=== PATIENT | male | born 1975 | race Caucasian/White ===

== ENCOUNTER 2017-09-18 11:41 | Inpatient (IN) | payer OTHER ==
[~2017-09-18] VITALS: Ht 167.6 cm; Wt 69.5 kg
[2017-09-18] VITALS (14 sets, daily range): BP systolic 116–190; BP diastolic 58–109
[~2017-09-18 11:41] MED LIST: APRESOLINE100 MG PO; ASPIR 8181 M1 PO; ATORVASTATIN CA40 MG PO; BACTRIM,SEPT1 TABLE1 PO; INSULIN PUMP MC; LABETALOL HCL300 MG PO; METOLAZONE5 MG PO; MYCOPHENOLATE250 MG PO; NABI650T PO; PANTOPRAZOLE SO40 MG PO; PLAVIX75 MG PO; PREDNISONE10 MG PO; SYNTHROID150 MCG PO; TACROLIMUS ANHYD1 MG PO; TORSEMIDE100 MG PO; VALCYTE450 MG PO; VITAMIN D32000 UNI1 PO
[2017-09-18 12:39] LABS: HEMATOCRIT 28.3 % (38.0-50.0); MCH 30.3 PG (29.0-34.0); MCHC 31.1 G/DL (30.0-36.0); MCV 97.6 FL (86-99); MEAN PLAT.VOLUME 9.4 uM^3 (9.0-12.4); PLATELET COUNT 265 K/uL (156-360); RBC DIS.WIDTH-CV 14.6 % (11.8-14.6); RBC DIS.WIDTH-SD 52.4 % (39-53); WHITE BLOOD COUNT 5.2 K/uL (4.1-10.2)
[2017-09-18 13:16] LABS: ANION GAP 14 MEQ/L (2-14); CHLORIDE 86 MEQ/L (99-109); GFR ESTIMATE (CALCULATED) 17 mL/min/; GLUCOSE 935 mg/dL (70-99); POTASSIUM 4.2 MEQ/L (3.7-5.4); SAMPLE HEMOLYSIS CHECK 0; SAMPLE ICTERIC CHECK 0; SAMPLE LIPEMIA CHECK 0; SODIUM 126 MEQ/L (136-147); UREA NITROGEN (BUN) 68 mg/dL (9-23)
[2017-09-18 16:13] LABS: METH RESISTANT S AUREUS PCR NEGATIVE (NEGATIVE); PROBE CHECK PASS; SPECIMEN PROCESSING CONTROL PASS
[2017-09-18 16:29] LABS: GLUCOSE 986 mg/dL (70-99)
[2017-09-18 18:18] LABS: GLUCOSE 880 mg/dL (70-99)
[2017-09-18 20:03] LABS: ANION GAP 14 MEQ/L (2-14); CHLORIDE 90 MEQ/L (99-109); POTASSIUM 4.3 MEQ/L (3.7-5.4); SAMPLE HEMOLYSIS CHECK 0; SAMPLE ICTERIC CHECK 0; SAMPLE LIPEMIA CHECK 0; SODIUM 128 MEQ/L (136-147)
[2017-09-18 20:11] LABS: GFR ESTIMATE (CALCULATED) 17 mL/min/; UREA NITROGEN (BUN) 69 mg/dL (9-23)
[2017-09-18 20:13] LABS: GLUCOSE 682 mg/dL (70-99)
[2017-09-19] VITALS (25 sets, daily range): BP systolic 123–182; BP diastolic 62–102
[2017-09-19 00:48] LABS: CHLORIDE 94 mEq/L (99-109); POTASSIUM 3.9 mEq/L (3.7-5.4); SODIUM 130 mEq/L (136-147)
[2017-09-19 00:52] LABS: ANION GAP 13 MEQ/L (2-14)
[2017-09-19 00:54] LABS: GFR ESTIMATE (CALCULATED) 14 mL/min/; GLUCOSE 428 mg/dL (70-99)
[2017-09-19 00:55] LABS: UREA NITROGEN (BUN) 72 mg/dL (9-23)
[2017-09-19 01:18] LABS: POINT-OF-CARE METER ID UU13113803; POINT-OF-CARE USER ID 609231305
[2017-09-19 02:36] LABS: POINT-OF-CARE METER ID UU13113803
[2017-09-19 03:31] LABS: POINT-OF-CARE METER ID UU14314083
[2017-09-19 04:32] LABS: POINT-OF-CARE METER ID UU14162636
[2017-09-19 05:24] LABS: ANION GAP 13 MEQ/L (2-14); CHLORIDE 95 MEQ/L (99-109); POTASSIUM 3.7 MEQ/L (3.7-5.4); SAMPLE HEMOLYSIS CHECK 0; SAMPLE ICTERIC CHECK 0; SAMPLE LIPEMIA CHECK 0; SODIUM 135 MEQ/L (136-147)
[2017-09-19 05:30] LABS: GFR ESTIMATE (CALCULATED) 15 mL/min/; UREA NITROGEN (BUN) 72 mg/dL (9-23)
[2017-09-19 05:30] LABS: POINT-OF-CARE METER ID UU13113803
[2017-09-19 05:31] LABS: GLUCOSE 154 mg/dL (70-99)
[2017-09-19 06:34] LABS: POINT-OF-CARE METER ID UU13113803
[2017-09-19 07:25] LABS: Estimated Average Glucose 200 mg/dL (70-123); HEMOGLOBIN A1c (GLYCOHEMOGLOB) 8.6 % HGB (Below 5.7)
[2017-09-19 08:48] LABS: ANION GAP 14 MEQ/L (2-14); CHLORIDE 93 MEQ/L (99-109); GFR ESTIMATE (CALCULATED) 14 mL/min/; GLUCOSE 214 mg/dL (70-99); POTASSIUM 3.8 MEQ/L (3.7-5.4); SAMPLE HEMOLYSIS CHECK 0; SAMPLE ICTERIC CHECK 0; SAMPLE LIPEMIA CHECK 0; SODIUM 133 MEQ/L (136-147); UREA NITROGEN (BUN) 77 mg/dL (9-23)
[2017-09-19 10:45] LABS: POINT-OF-CARE METER ID UU14314083
[2017-09-19 11:23] LABS: POINT-OF-CARE METER ID UU14314083
[2017-09-19 12:49] LABS: POINT-OF-CARE METER ID UU14314083
[2017-09-19 14:10] LABS: POINT-OF-CARE METER ID UU14314083
[2017-09-19 14:20] LABS: POINT-OF-CARE METER ID UU13113731
[2017-09-19 14:21] LABS: POINT-OF-CARE METER ID UU13113731
[2017-09-19 14:21] LABS: POINT-OF-CARE METER ID UU13113731
[2017-09-19 16:45] LABS: POINT-OF-CARE METER ID UU14314083
[2017-09-19 19:34] LABS: POINT-OF-CARE METER ID UU14314083; POINT-OF-CARE USER ID 606021424
[2017-09-19 22:06] LABS: POINT-OF-CARE METER ID UU14314083
[2017-09-20] VITALS (11 sets, daily range): BP systolic 118–174; BP diastolic 69–98
[2017-09-20 01:59] LABS: POINT-OF-CARE METER ID UU14174217; POINT-OF-CARE USER ID 606021424
[2017-09-20 05:27] LABS: POINT-OF-CARE METER ID UU14174217
[2017-09-20 06:21] LABS: POINT-OF-CARE METER ID UU14174217
[2017-09-20 06:40] LABS: POINT-OF-CARE METER ID UU14174217
[2017-09-20 07:43] LABS: POINT-OF-CARE METER ID UU14174217
[2017-09-20] MEDS ORDERED: NORCO 5/3251 TABLET PO (09:20)
[2017-09-20 09:23] LABS: POINT-OF-CARE METER ID UU13113675
[2017-09-20 12:29] LABS: EOSINOPHIL (%) 0.3 % (0-5); IMMATURE GRANULOCYTE (%) 0.6 % (0.0-0.7); IMMATURE GRANULOCYTE COUNT 0.1 K/uL; INSTRUMENT ABS NEUTROPHIL CT 12.1 K/uL; LYMPHOCYTE COUNT 0.2 K/uL (1.0-2.8); MCH 30.9 PG (29.0-34.0); MCHC 32.1 G/DL (30.0-36.0); MCV 96.2 FL (86-99); MEAN PLAT.VOLUME 9.4 uM^3 (9.0-12.4); MONOCYTE COUNT 0.1 K/uL (0-0.8); NEUTROPHIL (%) 96.4 % (45-76); NEUTROPHIL COUNT 12.1 K/uL (1.8-6.4); PLATELET COUNT 264 K/uL (156-360); RBC DIS.WIDTH-CV 15.9 % (11.8-14.6); RBC DIS.WIDTH-SD 56.4 % (39-53); RED BLOOD COUNT 2.91 M/uL (4.00-5.50); WHITE BLOOD COUNT 12.6 K/uL (4.1-10.2)
[2017-09-20 13:01] LABS: ANION GAP 12 MEQ/L (2-14); CHLORIDE 100 MEQ/L (99-109); GFR ESTIMATE (CALCULATED) 14 mL/min/; GLUCOSE 298 mg/dL (70-99); SAMPLE HEMOLYSIS CHECK 0; SAMPLE ICTERIC CHECK 0; SAMPLE LIPEMIA CHECK 0; SODIUM 134 MEQ/L (136-147); UREA NITROGEN (BUN) 81 mg/dL (9-23)
[2017-09-20 13:19] LABS: POTASSIUM 4.6 MEQ/L (3.7-5.4)
[2017-09-20 15:39] LABS: POINT-OF-CARE METER ID UU13113803
[2017-09-20 18:10] LABS: POINT-OF-CARE METER ID UU13113803
[2017-09-22 21:48] LABS: POINT-OF-CARE METER ID UU13113655; POINT-OF-CARE USER ID ENVKLS06
[2017-09-22 21:48] LABS: POINT-OF-CARE METER ID UU14174217
== END 2017-09-20 18:16 | disposition home or self-care (01) | DRG 981 ==
LOC: SDC 11:41 → 2SOUTH 13:59 → 4WEST 13:59 → ENRESERV 14:00 → 4WEST 14:21 → SDC 15:49 → 4WEST 09-20 18:16
PROVIDERS: Internal Medicine Nephrology; Surgery
PROC: 5A1D70Z Performance of Urinary Filtration, Intermittent, Less than 6 Hours Per Day (ICD-10-PCS; principal; 2017-09-20)
PROC: 0WHG43Z Insertion of Infusion Device into Peritoneal Cavity, Percutaneous Endoscopic Approach (ICD-10-PCS; 2017-09-20)
DX: E10.65 Type 1 diabetes mellitus with hyperglycemia (principal); N18.6 End stage renal disease; E87.0 Hyperosmolality and hypernatremia; I12.0 Hypertensive chronic kidney disease with stage 5 chronic kidney disease or end stage renal disease; T86.11 Kidney transplant rejection; T86.12 Kidney transplant failure; N25.81 Secondary hyperparathyroidism of renal origin; T86.890 Other transplanted tissue rejection; Z94.83 Pancreas transplant status; Z99.2 Dependence on renal dialysis; D63.1 Anemia in chronic kidney disease; E03.9 Hypothyroidism, unspecified; E10.22 Type 1 diabetes mellitus with diabetic chronic kidney disease; E78.5 Hyperlipidemia, unspecified; E66.3 Overweight; R60.9 Edema, unspecified; F43.0 Acute stress reaction; Z96.41 Presence of insulin pump (external) (internal); Z87.891 Personal history of nicotine dependence; Z60.2 Problems related to living alone; Z91.14 Patient's other noncompliance with medication regimen; Z79.52 Long term (current) use of systemic steroids; Z79.82 Long term (current) use of aspirin; Z85.07 Personal history of malignant neoplasm of pancreas; Z86.73 Personal history of transient ischemic attack (TIA), and cerebral infarction without residual deficits; Z68.25 Body mass index [BMI] 25.0-25.9, adult; Z59.8 Other problems related to housing and economic circumstances; Z79.4 Long term (current) use of insulin; Z63.79 Other stressful life events affecting family and household; Z83.3 Family history of diabetes mellitus
CPT/HCPCS: 80048; 80048 91; 80069; 82948; 83036; 84100; 84999; 85025; 85027; 87641; C1750; J0131; J0330; J0690; J0881; J1100; J1170; J1644; J1815; J2250; J2405; J2710; J3010; J7030; J7042; J7050; J7507; J7517; S0020

== ENCOUNTER 2017-11-19 14:56 | Observation (INO) | payer OTHER ==
[~2017-11-19] VITALS: Ht 166.4 cm; Wt 80.1 kg
[~2017-11-19 14:56] MED LIST changes: +NORCO 5/3251 TABLET PO
[2017-11-19 15:27] LABS: BASOPHIL COUNT 0.1 K/uL (0-0.1); EOSINOPHIL (%) 1.1 % (0-5); EOSINOPHIL COUNT 0.1 K/uL (0-0.3); HEMATOCRIT 39.2 % (38.0-50.0); HEMOGLOBIN 12.4 G/DL (12.5-16.6); IMMATURE GRANULOCYTE (%) 2.4 % (0.0-0.7); LYMPHOCYTE (%) 6.4 % (15-42); LYMPHOCYTE COUNT 0.5 K/uL (1.0-2.8); MCH 31.2 PG (29.0-34.0); MCHC 31.6 G/DL (30.0-36.0); MCV 98.5 FL (86-99); MONOCYTE (%) 12.4 % (3-12); MONOCYTE COUNT 0.9 K/uL (0-0.8); NEUTROPHIL (%) 76.7 % (45-76); NEUTROPHIL COUNT 5.7 K/uL (1.8-6.4); PLATELET COUNT 236 K/uL (156-360); RBC DIS.WIDTH-CV 15.3 % (11.8-14.6); RBC DIS.WIDTH-SD 53.9 % (39-53); RED BLOOD COUNT 3.98 M/uL (4.00-5.50); WHITE BLOOD COUNT 7.4 K/uL (4.1-10.2)
[2017-11-19 15:38] LABS: ALBUMIN 2.4 g/dL (3.2-4.8); CHLORIDE 91 mEq/L (99-109); POTASSIUM 5.3 mEq/L (3.7-5.4); SODIUM 129 mEq/L (136-147)
[2017-11-19 15:41] LABS: TOTAL PROTEIN 5.6 g/dL (6.4-8.3)
[2017-11-19 15:43] LABS: TOTAL BILIRUBIN 0.5 mg/dL (0.0-1.0)
[2017-11-19 15:44] LABS: ALKALINE PHOSPHATASE 513 IU/L (3-129); CREATININE 4.7 mg/dL (0.6-1.3); GFR ESTIMATE (CALCULATED) 15 mL/min/ (58.99-99999)
[2017-11-19 15:45] LABS: UREA NITROGEN (BUN) 43 mg/dL (9-23)
[2017-11-19 15:46] LABS: AST (GOT) 369 IU/L (2-34)
[2017-11-19 15:47] LABS: ALT (GPT) 322 IU/L (3-49); CREATINE KINASE 41 IU/L (1-294); TOTAL CK 41 IU/L (1-294)
[2017-11-19 15:54] LABS: CKMB RELATIVE INDEX 4.9 (0.0-3.9)
[2017-11-19 16:06] LABS: GLUCOSE 475 mg/dL (70-99)
[2017-11-19] MEDS ORDERED: BASAGLAR K100 UNIT/1 SC (17:32)
[2017-11-19] MEDS ORDERED: NOVOLOG PE100 UNITS/ SC (17:32)
[2017-11-19] MEDS ORDERED: GENTAMICIN SULF30 GM TP (17:33)
[2017-11-19 21:37] LABS: APPEARANCE CLEAR ((CLEAR)); BILIRUBIN NEGATIVE; BLOOD SMALL; COLOR YELLOW ((YELLOW)); GLUCOSE (STRIP) 150; KETONES NEGATIVE; LEUKOCYTES MODERATE; NITRITE NEGATIVE; PROTEIN (STRIP) 100; SPECIFIC GRAVITY 1.009 (1.000-1.030); UROBILINOGEN 0.2 MG/DL (0.2-1.0)
[2017-11-19 21:54] VITALS: BP 112/67
[2017-11-19 21:56] LABS: BACTERIA RARE /HPF; EPITHELIAL CELLS NONE SEEN /HPF; HYALINE CASTS 0-5 /LPF; MUCUS TRACE /LPF; UCUL ADDED? YES; WHITE BLOOD CELLS TNTC /HPF (0-5)
[2017-11-20 05:14] VITALS: BP 140/91
[2017-11-20 06:06] LABS: HEMATOCRIT 31.6 % (38.0-50.0); MCH 30.7 PG (29.0-34.0); MCV 99.1 FL (86-99); PLATELET COUNT 250 K/uL (156-360); RBC DIS.WIDTH-CV 15.2 % (11.8-14.6); RBC DIS.WIDTH-SD 54.5 % (39-53); RED BLOOD COUNT 3.19 M/uL (4.00-5.50); WHITE BLOOD COUNT 8.4 K/uL (4.1-10.2)
[2017-11-20 06:08] LABS: HEMOGLOBIN 9.8 G/DL (12.5-16.6)
[2017-11-20 06:43] LABS: ALBUMIN 2.3 G/DL (3.2-4.8); ALKALINE PHOSPHATASE 410 IU/L (3-129); ALT (GPT) 232 IU/L (3-49); AST (GOT) 233 IU/L (2-34); CHLORIDE 93 MEQ/L (99-109); CREATININE 5.3 MG/DL (0.6-1.3); GFR ESTIMATE (CALCULATED) 13 mL/min/ (58.99-99999); SODIUM 131 MEQ/L (136-147); TOTAL BILIRUBIN 0.4 MG/DL (0.0-1.0); TOTAL PROTEIN 5.1 G/DL (6.4-8.3); UREA NITROGEN (BUN) 53 mg/dL (9-23)
[2017-11-20 06:50] LABS: GLUCOSE 170 mg/dL (70-99); POTASSIUM 4.1 MEQ/L (3.7-5.4)
[2017-11-20 07:40] VITALS: BP 168/94
[2017-11-20 10:34] LABS: HEPATITIS B SURFACE ANTIGEN Nonreactive
[2017-11-20 10:35] LABS: HEPATITIS C ANTIBODY Nonreactive
[2017-11-20 10:36] LABS: ANTI-HEPATITIS A VIRUS (IGM) Nonreactive; ANTI-HEPATITIS B CORE (IGM) Nonreactive
[2017-11-20] MEDS ORDERED: AUGMENTIN500 MG PO (15:03)
[2017-11-20 15:40] VITALS: BP 132/75
== END 2017-11-20 19:18 | disposition home or self-care (01) ==
LOC: EME 14:56 → EDOF 16:40 → 5WEST 16:40 → EDOF 16:40 → ENRESERV 16:52 → 5WEST 21:39
PROVIDERS: Emergency Medicine; Hospitalist
DX: E10.65 Type 1 diabetes mellitus with hyperglycemia (principal); R41.82 Altered mental status, unspecified; N39.0 Urinary tract infection, site not specified; E10.22 Type 1 diabetes mellitus with diabetic chronic kidney disease; R74.0 Nonspecific elevation of levels of transaminase and lactic acid dehydrogenase [LDH]; I12.0 Hypertensive chronic kidney disease with stage 5 chronic kidney disease or end stage renal disease; N18.6 End stage renal disease; Z99.2 Dependence on renal dialysis; T86.12 Kidney transplant failure; E78.5 Hyperlipidemia, unspecified; E03.9 Hypothyroidism, unspecified; D64.9 Anemia, unspecified; Z86.73 Personal history of transient ischemic attack (TIA), and cerebral infarction without residual deficits; Z94.83 Pancreas transplant status; R60.0 Localized edema; I95.9 Hypotension, unspecified; Z79.4 Long term (current) use of insulin; Z87.891 Personal history of nicotine dependence; E86.0 Dehydration; Z96.41 Presence of insulin pump (external) (internal)
CPT/HCPCS: 70450; 71045; 76705; 80053; 80074; 81003; 82140; 82550; 82553; 82948; 83516 90; 85025; 85027; 86038; 86235; 87040; 87077; 87086; 87186; 93005; G0257; G0378; J7030; J7507; J7512; J7517; S0028